=== PATIENT | female | born 1970 | race African-American/Black ===

== ENCOUNTER 2019-05-31 18:02 | Emergency (ER) | payer MEDICAID, MEDICARE ==
[~2019-05-31] VITALS: Ht 160 cm; Wt 73.0 kg
[~2019-05-31 18:02] MED LIST: FLEXERIL; GABAPENTIN; NORCO; OXYCODONE; SENNA
[2019-05-31] MEDS ORDERED: HYDROCODONE/ACETAMINOPHEN 5/325MG TABLET PO ONE ×2 (19:15→20:15)
[2019-05-31] MEDS ORDERED: HYDROCODONE/ACETAMINOPHEN 10/325MG TABLET PO ONE (20:00)
[2019-05-31] MEDS ORDERED: KETOROLAC 60MG/2ML VIAL IM ONE (21:15)
[2019-05-31 22:43] LABS: BASOPHILS % 1.2 % (0.0-2.0); EOSINOPHILS % 1.1 % (0.0-5.0); HEMATOCRIT. 41.2 % (36.0-48.0); LYMPHOCYTES % 36.4 % (20.0-50.0); MEAN CORPUSCULAR HEMOGLOBIN 28.6 pg (28.0-32.0); MEAN CORPUSCULAR VOLUME 84.2 fL (81.0-99.0); MEAN PLATELET VOLUME 8.9 fl (7.4-10.4); MONOCYTES % 5.6 % (2.0-8.0); NEUTROPHILS % 55.7 % (40.0-76.0); PLATELET 364 x1000/uL (130-400); RED BLOOD CELL COUNT 4.89 mill/uL (4.2-5.4); RED CELL DISTRIBUTION WIDTH 13.4 % (11.6-14.6)
[2019-05-31 22:45] LABS: CHLORIDE 109 mEq/L (98-107); PROTHROMBIN TIME 10.2 sec (9.6-11.0)
[2019-06-01 01:17] VITALS: BP 124/89
== END 2019-06-01 01:19 | disposition home or self-care (01) ==
LOC: ER 18:02
DX: M54.41 Lumbago with sciatica, right side (principal); G89.29 Other chronic pain; Z98.890 Other specified postprocedural states; Z88.6 Allergy status to analgesic agent; Z79.899 Other long term (current) drug therapy; M48.061 Spinal stenosis, lumbar region without neurogenic claudication
CPT/HCPCS: 36415; 72100; 72131; 80053; 85025; 85610; 85651; 96372; 99284; J1885